=== PATIENT | female | born 1970 | race African-American/Black ===

== ENCOUNTER 2018-04-19 10:10 | Emergency (ER) | payer OTHER ==
[2018-04-19 10:20] VITALS: BP 142/99; PULSE 66; TEMP 98.1; BMI 34.4
--- NOTE | 2018-04-19 10:42 | PDOC ---
History of Present Illness - General History Source: Patient Exam Limitations: No Limitations <MaribelBritanyarmando Liao - Last Filed: 04/19/18 14:55> - General History Source: Patient Exam Limitations: No Limitations - History of Present Illness Initial Comments: 04/19/18 10:54 Patient is a 47-year-old female with past medical history of hypertension on atenolol and hydrochlorothiazide, presents to the emergency department today for 1 day of right lower extremity cramping, intermittent chest pain, and epigastric tenderness for one day. Patient states that the calf is tender hurts to walk. Denies trauma or falling. Denies fevers, recent illness, shortness of breath, difficulty breathing, palpitations, nausea, vomiting, diarrhea, frequency, urgency and hematuria. <Mirian Jo - Last Filed: 04/19/18 18:06> - General Chief Complaint: Pain, Acute Stated Complaint: RT LEG PAIN/epgasitriac pain/chest pain Time Seen by Provider: 04/19/18 10:41 Past History <Britany López - Last Filed: 04/19/18 14:55> - Travel Traveled outside of the country in the last 30 days: No Close contact w/someone who was outside of country & ill: No - Past Medical History COPD: No CHF: No HTN: Yes - Surgical History Appendectomy: No Gastric Stapling: No - Immunization History Immunization Up to Date: No - Suicide/Smoking/Psychosocial Hx Smoking History: Never smoked Have you smoked in the past 12 months: No Information on smoking cessation initiated: No Hx Alcohol Use: No Drug/Substance Use Hx: No <Mirian Jo - Last Filed: 04/19/18 18:06> - Past Medical History Allergies/Adverse Reactions: Allergies Allergy/AdvReac Type Severity Reaction Status Date / Time No Known Allergies Allergy Verified 04/19/18 11:41 Home Medications: Ambulatory Orders Atenolol [Tenormin -] 25 mg PO DAILY 04/19/18 Hydrochlorothiazide [Hctz -] 50 mg PO DAILY 04/19/18 Review of Systems - Review of Systems Able to Perform ROS?: Yes Comments:: 04/19/18 11:09 CONSTITUTIONAL: Absent: fever, chills, diaphoresis, generalized weakness, malaise, loss of appetite HEENT: Absent: rhinorrhea, nasal congestion, throat pain, throat swelling, difficulty swallowing, mouth swelling, ear pain, eye pain, visual Changes CARDIOVASCULAR: Present: chest pain, and calf pain Absent: loss of consciousness, palpitations , irregular heart rate, peripheral edema RESPIRATORY: Absent: cough, shortness of breath, dyspnea with exertion, orthopnea, wheezing, stridor, hemoptysis GASTROINTESTINAL: Present: epigastric tenderness Absent: abdominal pain, abdominal distension, nausea, vomiting, diarrhea, constipation, melena, hematochezia GENITOURINARY: Absent: dysuria, frequency, urgency, hesitancy, hematuria, flank pain, genital pain MUSCULOSKELETAL: Absent: myalgia, arthralgia, joint swelling SKIN: Absent: rash, itching, pallor HEMATOLOGIC/IMMUNOLOGIC: Absent: easy bleeding, easy bruising, lymphadenopathy, frequent infections ENDOCRINE: Absent: unexplained weight gain, unexplained weight loss, heat intolerance, cold intolerance NEUROLOGIC: Absent: headache, focal weakness or paresthesias, dizziness, unsteady gait, seizure, mental status changes, bladder or bowel incontinence PSYCHIATRIC: Absent: anxiety, depression, suicidal or homicidal ideation, hallucinations. Is the patient limited Micronesian proficient: No <Mirian Jo - Last Filed: 04/19/18 18:06> *Physical Exam - Vital Signs Last Vital Signs Temp Pulse Resp BP Pulse Ox 98.1 F 66 16 142/99 99 04/19/18 10:15 04/19/18 10:15 04/19/18 10:15 04/19/18 10:15 04/19/18 10:15 <Britany López - Last Filed: 04/19/18 14:55> - Vital Signs Last Vital Signs Temp Pulse Resp BP Pulse Ox 98.1 F 66 16 142/99 99 04/19/18 10:15 04/19/18 10:15 04/19/18 10:15 04/19/18 10:15 04/19/18 10:15 - Physical Exam Comments: 04/19/18 11:09 GENERAL: Well developed, well nourished. Awake and alert. No acute distress. HEENT: Normocephalic, atraumatic. PERRLA, EOMI. No conjunctival pallor. Sclera are non- icteric. Moist mucous membranes. Oropharynx is clear. NECK: Supple. Full ROM. No JVD. Carotid pulses 2+ and symmetric, without bruits. No thyromegaly. No lymphadenopathy. CARDIOVASCULAR: Regular rate and rhythm. No murmurs, rubs, or gallops. Distal pulses are 2+ and symmetric. PULMONARY: No evidence of respiratory distress. Lungs clear to auscultation bilaterally. No wheezing, rales or rhonchi. ABDOMINAL: Soft. Non-tender. Non-distended. No rebound or guarding. No organomegaly. Normoactive bowel sounds. MUSCULOSKELETAL Normal range of motion at all joints. No bony deformities or tenderness. No CVA tenderness. EXTREMITIES: TTP of R lower extremity around the calf. No edema appreciated. No cyanosis. No clubbing. SKIN: Warm and dry. Normal capillary refill. No rashes. No jaundice. NEUROLOGICAL: Alert, awake, appropriate. Cranial nerves 2-12 intact. No deficits to light touch and temperature in face, upper extremities and lower extremities. No motor deficits in the in face, upper extremities and lower extremities. Normoreflexic in the upper and lower extremities. Normal speech. Toes are down- going bilaterally. Gait is normal without ataxia. PSYCHIATRIC: Cooperative. Good eye contact. Appropriate mood and affect. <Mirian Jo - Last Filed: 04/19/18 18:06> ED Treatment Course - LABORATORY CBC & Chemistry Diagram: 04/19/18 11:27 04/19/18 11:27 - ADDITIONAL ORDERS Additional order review: Laboratory Results 04/19/18 04/19/18 04/19/18 11:40 11:40 11:27 PT with INR INR Sodium 141 Potassium 3.3 L Chloride 99 Carbon Dioxide 34 H Anion Gap 7 L BUN 22 H Creatinine 1.0 Creat Clearance w eGFR 58.93 Random Glucose 161 H Calcium 9.3 Total Bilirubin 0.5 AST 17 ALT 23 Alkaline Phosphatase 94 Creatine Kinase 221 H Creatine Kinase Index 0.5 CK-MB (CK-2) 1.3 Troponin I < 0.02 Total Protein 7.7 Albumin 3.8 Lipase 140 Urine Color Ltyellow Urine Appearance Clear Urine pH 7.0 Ur Specific [place] 1.017 Urine Protein Negative Urine Glucose (UA) Negative Urine Ketones Negative Urine Blood Negative Urine Nitrite Negative Urine Bilirubin Negative Urine Urobilinogen Negative Ur Leukocyte Esterase Negative Urine HCG, Qual Negative 04/19/18 11:27 PT with INR 14.00 H INR 1.18 H Sodium Potassium Chloride Carbon Dioxide Anion Gap BUN Creatinine Creat Clearance w eGFR Random Glucose Calcium Total Bilirubin AST ALT Alkaline Phosphatase Creatine Kinase Creatine Kinase Index CK-MB (CK-2) Troponin I Total Protein Albumin Lipase Urine Color Urine Appearance Urine pH Ur Specific [place] Urine Protein Urine Glucose (UA) Urine Ketones Urine Blood Urine Nitrite Urine Bilirubin Urine Urobilinogen Ur Leukocyte Esterase Urine HCG, Qual 04/19/18 11:27 RBC 4.95 MCV 86.7 MCHC 33.3 RDW 12.5 MPV 7.3 L Neutrophils % 50.0 Lymphocytes % 40.0 Monocytes % 6.5 Eosinophils % 2.6 Basophils % 0.9 <Britany López - Last Filed: 04/19/18 14:55> - LABORATORY CBC & Chemistry Diagram: 04/19/18 11:27 04/19/18 11:27 <Mirian Jo - Last Filed: 04/19/18 18:06> Medical Decision Making - Medical Decision Making 04/19/18 13:47 The patient was seen and evaluated in conjunction with midlevel provider under my direct supervision, ancillary studies were reviewed. I agree with the plan as outlined by JANA Jo. 47 YOF with cp and RLE cramping vitals wnl, reassuring. duplex neg for DVT labs and lytes normal. potassium mildly low, repleted neg preg test. UA unremarkable for infection or abnormalities. EKG nonischemic, sinus rhythm, wnl. discharge in stable condition 04/19/18 13:48 04/19/18 14:55 <Britany López - Last Filed: 04/19/18 14:55> - Medical Decision Making 04/19/18 14:59 Patient is a 47-year-old female past medical history of hypertension, who presents to emergency department today for 1 day of intermittent chest pain, epigastric tenderness and right lower extremity cramping. DDX includes but is not limited to DVT, electrolyte abnormality. ACS unlikely as pt has symptoms for over 24 hours. -VSS, pt well appearing -(+) TTP of the R calf, (-) keerthi's exam -US doppler (-) for DVT -EKG NSR, rate 63 BPM, qtc 448/458. No acute ST-T wave changes -Labs show hypokalemia at 3.3; d/t hydroclorthiazide? -No leukocytosis, other electrolytes WNL. Troponin (-) -repleated K+ -cramping most likely d/t hypokalemia -DC home -I discussed the physical exam findings, ancillary test results and final diagnoses with the patient. I answered all of the patient's questions. The patient was satisfied with the care received and felt comfortable with the discharge plan and treatment plan. The Patient agrees to follow up with the primary care physician/specialist within 24-72 hours. Return precautions were given. <Mirian Jo - Last Filed: 04/19/18 18:06> *DC/Admit/Observation/Transfer <Britany López - Last Filed: 04/19/18 14:55> - Discharge Dispostion Decision to Admit order: No <Mirian Jo - Last Filed: 04/19/18 18:06> Diagnosis at time of Disposition: Hypokalemia - Discharge Dispostion Disposition: HOME Condition at time of disposition: Stable - Referrals Referrals: Satya Meza MD [Staff Physician] - Marie Prieto MD [Staff Physician] - Lela England [Staff Physician] - - Patient Instructions Printed Discharge Instructions: DI for Hypokalemia Additional Instructions: You were evaluated today for your leg cramping and chest pain. Your scan for DVTs were negative. Your potassium was low. We gave you potassium in the emergency department. Please eat bananas and leafy green vegetables at home to help boost her potassium further. Please follow up with a primary care doctor. Multiple referrals for been provided for you. Return to the emergency department if you have difficulty breathing, chest pain , worsening of your symptoms or any new symptoms. - Post Discharge Activity Forms/Work/School Notes: Back to Work
[2018-04-19 12:03] LABS: BASO % 0.9 % (0-2.0); EOS % 2.6 % (0-4.5); HEMATOCRIT 42.9 % (32.4-45.2); HEMOGLOBIN 14.3 GM/dL (10.7-15.3); MCH 28.8 pg (25.7-33.7); MCHC 33.3 g/dl (32.0-36.0); MEAN CELL VOLUME 86.7 fl (80-96); MEAN PLT VOLUME 7.3 fl (7.5-11.1); MONO % 6.5 % (3.8-10.2); PLATELET COUNT 354 K/MM3 (134-434); RBC 4.95 M/mm3 (3.60-5.2); RDW 12.5 % (11.6-15.6); WHITE BLOOD COUNT 5.5 K/mm3 (4.0-10.0)
[2018-04-19 12:15] LABS: HCG,QUALITATIVE URINE Negative
[2018-04-19 12:22] LABS: INR 1.18 (0.83-1.09)
[2018-04-19 12:24] LABS: URINE APPEARANCE CLEAR; URINE BILIRUBIN NEGATIVE (<2.0 mg/dL); URINE COLOR LTYELLOW; URINE GLUCOSE (UA) NEGATIVE (NEGATIVE); URINE KETONE NEGATIVE (NEGATIVE); URINE LEUK ESTERASE NEGATIVE (NEGATIVE); URINE NITRITE NEGATIVE (NEGATIVE); URINE PROTEIN NEGATIVE (NEGATIVE); URINE UROBILINOGEN NEGATIVE mg/dL (0.2-1.0)
[2018-04-19 12:32] LABS: ALBUMIN 3.8 g/dl (3.4-5.0); ALK PHOS 94 U/L (45-117); ANION GAP 7 MMOL/L (8-16); BILIRUBIN,TOTAL 0.5 mg/dL (0.2-1); BLOOD UREA NITROGEN 22 mg/dL (7-18); CALCIUM 9.3 mg/dL (8.5-10.1); CHLORIDE 99 mmol/L (98-107); CO2 34 mmol/L (21-32); GLUCOSE,RANDOM 161 mg/dL (74-106); POTASSIUM 3.3 mmol/L (3.5-5.1); SGOT/AST 17 U/L (15-37); SGPT/ALT 23 U/L (13-61); SODIUM 141 mmol/L (136-145); TOT PROT 7.7 g/dl (6.4-8.2)
[2018-04-19 12:32] LABS: LIPASE 140 U/L (73-393)
[2018-04-19] MEDS ORDERED: POTASSIUM CHLORIDE TABS 20 MEQ TABLET.ER (FP) PO ONE ×2 (13:32→14:00)
--- NOTE | 2018-04-20 12:16 | EKG ---
Test Reason : Blood Pressure : / mmHG Vent. Rate : 063 BPM Atrial Rate : 063 BPM P-R Int : 214 ms QRS Dur : 108 ms QT Int : 448 ms P-R-T Axes : 061 -45 004 degrees QTc Int : 458 ms SINUS RHYTHM WITH 1ST DEGREE A-V BLOCK POSSIBLE LEFT ATRIAL ENLARGEMENT LEFT AXIS DEVIATION INCOMPLETE RIGHT BUNDLE BRANCH BLOCK ABNORMAL ECG NO PREVIOUS ECGS AVAILABLE Confirmed by MEERA MEJIA MD ([id number]) on 04/20/2018 12:16:35 PM Referred By: Confirmed By:MEERA MEJIA MD
== END 2018-04-19 15:53 | disposition home or self-care (01) ==
LOC: JER 10:10
DX: E87.6 Hypokalemia (principal); I10 Essential (primary) hypertension
CPT/HCPCS: 36415; 71046-TC-FY; 80053; 81003; 82550; 82553; 83690; 84484; 84703; 85025; 85610; 87086; 93005; 93010; 93971-TC; 99283-25

== ENCOUNTER 2019-06-03 16:17 | Emergency (ER) | payer OTHER ==
[2019-06-03 16:23] VITALS: BMI 33.0
--- NOTE | 2019-06-03 17:28 | PDOC ---
Attending Attestation - Resident Resident Name: Gissell Sheriff - HPI HPI: 06/03/19 18:43 Pt presents to the ED complaining of a two day history of wheezing with lying flat and substernal chest discomfort. Denies shortness of breath, orthopnea, or ARREDONDO. Patient has two year history of L sided pleuritic chest pain, which CT scans and stress test were negative. PAtient is recently post R nephrectomy for renal cell carcinoma. - Physicial Exam PE: 06/03/19 18:55 Agree with resident exam. Patient is well appearing and in no acute distress. Lungs are clear. Heart regular rate and rhythm without murmurs. - Medical Decision Making 06/03/19 18:56 PT presents to the ED complaining of worsening of his chronic chest pain. Well appearing in the ED. EKG shows no evidence of ischemia. Will check labs to rule out ACS, likely discharge home if labs are within normal limits.
--- NOTE | 2019-06-03 17:50 | PDOC ---
History of Present Illness - General Chief Complaint: Pain Stated Complaint: CHEST DISCOMFORT/HURTS UPON INHALATION Time Seen by Provider: 06/03/19 16:53 History Source: Patient Exam Limitations: No Limitations - History of Present Illness Initial Comments: Pt is a 48 yo F, with PMH of HTN, hypokalemia, partial thyroidectomy (2/2 hyperthyroidism), RCC (s/p R nephrectomy and adrenalectomy), who is presenting with chest pain. Pt states she has had sharp chest pain which is worse with deep breaths that has been ongoing x1 year. She states she had a cardiac stress test within the last year, which was normal, but not an echo. Pt states the pain has been radiating up towards the middle of her chest, and has become more "pressure like" over the past 2 days. Pt states she has also had to sleep more upright, and has been coughing whitish sputum over the past 2 days. Pt denies any fevers/chills, headache, vision changes, syncope, palpitations, SOB, nausea/ vomiting, abdominal pain, urinary symptoms, diarrhea/constipation, or leg swelling from baseline. Pt had R nephrectomy and R adrenalectomy done 09/2018 -- last Cr was 1.2, done 3 weeks ago Allergies: NKDA PCP: Dr. Padmini Davalos ([facility]) Renal: [facility] Cards: Johnny ([place]) LMP: 04/28, starting to become more infrequent. Social: Pt denies any cigarette, alcohol, or drug use. Pt denies any recent travel or sick contacts. Surgical: see above Family: no relevant history. 06/03/19 17:58 06/03/19 18:10 Past History - Travel Traveled outside of the country in the last 30 days: No Close contact w/someone who was outside of country & ill: No - Past Medical History Allergies/Adverse Reactions: Allergies Allergy/AdvReac Type Severity Reaction Status Date / Time contrast AdvReac Uncoded 06/03/19 17:04 Home Medications: Ambulatory Orders Atenolol [Tenormin -] 50 mg PO DAILY 04/19/18 Atorvastatin Ca [Lipitor] 10 mg PO HS 06/03/19 Cancer: Yes (stage 3 09/2018) COPD: No CHF: No HTN: Yes - Surgical History Appendectomy: No Gastric Stapling: No - Immunization History Immunization Up to Date: No - Psycho Social/Smoking Cessation Hx Smoking History: Never smoked Have you smoked in the past 12 months: No Hx Alcohol Use: No Drug/Substance Use Hx: No Cardiac Specific PMH - Complaint Specific PMHX Abdominal Aortic Aneurysm: No Angina: No Cardiac Arrhythmia: No Cardiac Stent: No GERD: No Myocardial Infarction: No Pacemaker: No Pulmonary Embolus: No Valvular Heart Disease: No Peripheral Vascular Disease: No Review of Systems - Review of Systems Able to Perform ROS?: Yes Is the patient limited Portuguese proficient: No Constitutional: Yes: Weight Stable. No: Chills, Diaphoresis, Fever, Loss of Appetite, Malaise, Weakness HEENTM: No: Recent change in vision, Nose Congestion, Throat Pain, Throat Swelling, Difficulty Swallowing Respiratory: Yes: Cough, Orthopnea, Wheezing, Productive cough. No: Shortness of Breath, SOB with Exertion, SOB at Rest, Hemoptysis Cardiac (ROS): Yes: Chest Pain, Chest Tightness. No: Edema, Irregular Heart Rate, Lightheadedness, Palpitations, Syncope ABD/GI: No: Constipated, Diarrhea, Nausea, Poor Appetite, Poor Fluid Intake, Vomiting, Abdominal cramping : No: Burning, Dysuria, Frequency, Flank Pain, Hematuria, Pain, Urgency Musculoskeletal: No: Back Pain, Joint Pain, Muscle Pain, Muscle Weakness Integumentary: No: Rash Neurological: No: Headache, Numbness, Weakness, Unsteady Gait, Dizziness Psychiatric: No: Sleep Pattern Change, Change in Appetite Endocrine: No: Increased Urine, Change in Weight Hematologic/Lymphatic: No: Anemia, Blood Clots, Easy Bleeding, Easy Bruising All Other Systems: Reviewed and Negative *Physical Exam - Vital Signs Last Vital Signs Temp Pulse Resp BP Pulse Ox 98.4 F 71 18 157/96 98 06/03/19 16:19 06/03/19 16:19 06/03/19 16:19 06/03/19 16:19 06/03/19 16:19 - Physical Exam Vitals stable, pt afebrile. Pt in NAD, obese body habitus. Pt alert and oriented x3. etl architect generally intact, muscular strength and sensation intact. No midline spinal tenderness, step-offs, or crepitus. Head normocephalic, atraumatic. Eyes PERRLA, EOMI. Oropharynx without erythema or exudates, no LAD b/l. No nasal congestion. Hearing intact. Clear heart sounds, S1/S2, no JVD, b/l pedal edema, or heart murmur. Scattered expiratory wheezing, with no diminished breath sounds or intercostal muscle use. No increased WOB with exam. No abdominal or CVA tenderness to palpation, no rebound, no guarding. Abdomen soft, non-distended, and with normoactive bowel sounds. Skin without jaundice or rash. 06/03/19 18:12 06/03/19 18:29 Heart Score/ECG Review - History History: Slightly suspicious - Electrocardiogram EKG: Non specific repolarization disturbance - Age Age: 45-65 - Risk Factors Risk Factors Heart Score: Yes Hx Hypertension, Yes Hx Obesity Based on the list above the patient has:: 1-2 risk factors - Troponin Troponin: </= normal limit - Score Heart Score - Total: 3 ED Treatment Course - LABORATORY CBC & Chemistry Diagram: 06/03/19 18:10 06/03/19 18:10 - ADDITIONAL ORDERS Additional order review: Laboratory Results 06/03/19 18:10 Urine Color Yellow Urine Appearance Clear Urine pH 7.0 Ur Specific [place] 1.019 Urine Protein Negative Urine Glucose (UA) Negative Urine Ketones Negative Urine Blood Negative Urine Nitrite Negative Urine Bilirubin Negative Urine Urobilinogen 1.0 Ur Leukocyte Esterase 1+ H Urine WBC (Auto) 5 Urine RBC (Auto) 2 Urine Casts (Auto) 0 U Epithel Cells (Auto) 1.9 Urine Bacteria (Auto) 74.0 - RADIOLOGY Radiology Studies Ordered: Category Date Time Status CHEST PA & LAT [RAD] Stat Radiology 06/03/19 17:56 Ordered Medical Decision Making - Medical Decision Making Pt was seen at bedside, also will be seen by attending Dr. Erazo. Pt presenting with chest pressure, and new symptoms of productive cough, orthopnea , and wheezing. Will evaluate for ACS vs pleural effusion vs CHF vs electrolyte abnormalities vs infection (pneumonia) Will continue to reassess pt and monitor for symptomatic improvement. ECG: NSR, incomplete RBBB (HR 68, VA 202, QRS 92, QTc 448). TWI V2 and III, with no significant ST segment changes. No significant changes from prior ECG ( 04/19/2019). 06/03/19 18:48 Labwork sent, work-up pending. Pt signed out to night team. 06/03/19 18:54 Discharge - Discharge Information Problems reviewed: Yes Clinical Impression/Diagnosis: Chest pressure Condition: Stable - Follow up/Referral - Patient Discharge Instructions - Post Discharge Activity
[2019-06-03 18:24] LABS: BASO % 1.4 % (0-2.0); EOS % 3.9 % (0-4.5); HEMOGLOBIN 14.5 GM/dL (10.7-15.3); MCH 28.9 pg (25.7-33.7); MEAN CELL VOLUME 87.6 fl (80-96); MEAN PLT VOLUME 7.5 fl (7.5-11.1); MONO % 6.5 % (3.8-10.2); NEUT % 56.2 % (42.8-82.8); PLATELET COUNT 337 K/MM3 (134-434); RBC 5.02 M/mm3 (3.60-5.2); RDW 13.3 % (11.6-15.6); WHITE BLOOD COUNT 8.7 K/mm3 (4.0-10.0)
[2019-06-03 18:28] LABS: EPI CELLS 1.9 /HPF (0-5/HPF); HYALINE CASTS 0 /lpf (0-8); URINE APPEARANCE CLEAR; URINE BILIRUBIN NEGATIVE (NEGATIVE); URINE COLOR YELLOW; URINE GLUCOSE (UA) NEGATIVE (NEGATIVE); URINE KETONE NEGATIVE (NEGATIVE); URINE LEUK ESTERASE 1+ (NEGATIVE); URINE NITRITE NEGATIVE (NEGATIVE); URINE PROTEIN NEGATIVE (NEGATIVE); URINE RBC 2 /hpf (0-4); URINE WBC 5 /hpf (0-5)
[2019-06-03 18:35] LABS: INR 0.98 (0.83-1.09); PROTHROMBIN TIME (PATIENT) 11.6 SEC (9.7-13.0)
[2019-06-03 18:56] LABS: ALBUMIN 3.8 g/dl (3.4-5.0); ALK PHOS 110 U/L (45-117); ANION GAP 8 MMOL/L (8-16); BILIRUBIN,TOTAL 0.4 mg/dL (0.2-1); BLOOD UREA NITROGEN 18.6 mg/dL (7-18); CALCIUM 8.8 mg/dL (8.5-10.1); CHLORIDE 102 mmol/L (98-107); CO2 28 mmol/L (21-32); CREATININE 1.1 mg/dL (0.55-1.3); GLUCOSE,RANDOM 94 mg/dL (74-106); N-TERMINAL BNP 15.2 pg/ml (5-125); POTASSIUM 4.1 mmol/L (3.5-5.1); SGOT/AST 9 U/L (15-37); SGPT/ALT 22 U/L (13-61); SODIUM 138 mmol/L (136-145); TOT PROT 7.4 g/dl (6.4-8.2)
--- NOTE | 2019-06-03 19:05 | PDOC ---
*Physical Exam - Vital Signs Last Vital Signs Temp Pulse Resp BP Pulse Ox 98.4 F 71 18 157/96 98 06/03/19 16:19 06/03/19 16:19 06/03/19 16:19 06/03/19 16:19 06/03/19 16:19 ED Treatment Course - LABORATORY CBC & Chemistry Diagram: 06/03/19 18:10 06/03/19 18:10 - ADDITIONAL ORDERS Additional order review: Laboratory Results 06/03/19 06/03/19 06/03/19 18:10 18:10 18:10 PT with INR 11.60 INR 0.98 Sodium Potassium Chloride Carbon Dioxide Anion Gap BUN Creatinine Est GFR (CKD-EPI)AfAm Est GFR (CKD-EPI)NonAf Random Glucose Calcium Magnesium Total Bilirubin AST ALT Alkaline Phosphatase Troponin I B-Natriuretic Peptide Total Protein Albumin TSH Serum , Qual Negative Urine Color Yellow Urine Appearance Clear Urine pH 7.0 Ur Specific [place] 1.019 Urine Protein Negative Urine Glucose (UA) Negative Urine Ketones Negative Urine Blood Negative Urine Nitrite Negative Urine Bilirubin Negative Urine Urobilinogen 1.0 Ur Leukocyte Esterase 1+ H Urine WBC (Auto) 5 Urine RBC (Auto) 2 Urine Casts (Auto) 0 U Epithel Cells (Auto) 1.9 Urine Bacteria (Auto) 74.0 06/03/19 06/03/19 18:10 18:10 PT with INR INR Sodium 138 Potassium 4.1 Chloride 102 Carbon Dioxide 28 Anion Gap 8 BUN 18.6 H Creatinine 1.1 Est GFR (CKD-EPI)AfAm 67.79 Est GFR (CKD-EPI)NonAf 58.49 Random Glucose 94 Calcium 8.8 Magnesium 1.9 Total Bilirubin 0.4 AST 9 L ALT 22 Alkaline Phosphatase 110 Troponin I < 0.02 B-Natriuretic Peptide 15.2 Total Protein 7.4 Albumin 3.8 TSH 2.39 Serum , Qual Urine Color Urine Appearance Urine pH Ur Specific [place] Urine Protein Urine Glucose (UA) Urine Ketones Urine Blood Urine Nitrite Urine Bilirubin Urine Urobilinogen Ur Leukocyte Esterase Urine WBC (Auto) Urine RBC (Auto) Urine Casts (Auto) U Epithel Cells (Auto) Urine Bacteria (Auto) 06/03/19 18:10 RBC 5.02 MCV 87.6 MCHC 33.0 RDW 13.3 MPV 7.5 Neutrophils % 56.2 Lymphocytes % 32.0 Monocytes % 6.5 Eosinophils % 3.9 Basophils % 1.4 - RADIOLOGY Radiology Studies Ordered: Category Date Time Status CHEST PA & LAT [RAD] Stat Radiology 06/03/19 17:56 Ordered Medical Decision Making - Medical Decision Making CBC and CMP WNL Trop <.02 BNP WNL Pt safe for d/c to home. Potentially pleuritic pain due to recent congestion. Suggested nasal saline flushes and tylenol PRN for pain. Avoid motrin due to nephrotoxicity Pt can d/c with cardiology and PCP. Strict return precautions provided with pt understanding. 06/03/19 19:02 Discharge - Discharge Information Problems reviewed: Yes Clinical Impression/Diagnosis: Chest pressure Condition: Stable - Admission No - Follow up/Referral - Patient Discharge Instructions Patient Printed Discharge Instructions: DI for Atypical Chest Pain Additional Instructions: You were seen in the ER today for chest pressure. The results of your labs and imaging today were normal. Please follow-up with your primary care doctor (Dr. Davalos) and Cardiology (Dr. Turner) within 1-2 days to discuss your visit and make sure your symptoms have improved. Please return to the ER if you have any worsening pain, development of fevers or chills, loss of consciousness, inability to tolerate food or fluids, or any other concerns. You can take tylenol every 4-6 hours as needed for pain. - Post Discharge Activity
[2019-06-03 19:16] VITALS: TEMP 98
[2019-06-03 19:27] VITALS: BP 126/85; PULSE 68
--- NOTE | 2019-06-04 13:40 | EKG ---
Test Reason : Blood Pressure : / mmHG Vent. Rate : 068 BPM Atrial Rate : 068 BPM P-R Int : 202 ms QRS Dur : 092 ms QT Int : 422 ms P-R-T Axes : 061 -27 025 degrees QTc Int : 448 ms NORMAL SINUS RHYTHM POSSIBLE LEFT ATRIAL ENLARGEMENT INCOMPLETE RIGHT BUNDLE BRANCH BLOCK BORDERLINE ECG WHEN COMPARED WITH ECG OF 19-APR-2018 14:33, T WAVE INVERSION LESS EVIDENT IN ANTERIOR LEADS Confirmed by FELISA MONROY MD ([id number]) on 06/04/2019 1:39:39 PM Referred By: Confirmed By:FELISA MONROY MD
== END 2019-06-03 19:21 | disposition home or self-care (01) ==
LOC: JER 16:17 → JERFT 16:17 → JER 19:18
DX: R07.89 Other chest pain (principal); I10 Essential (primary) hypertension; E66.9 Obesity, unspecified; Z85.9 Personal history of malignant neoplasm, unspecified; Z91.041 Radiographic dye allergy status
CPT/HCPCS: 36415; 71046-TC-FY; 80053; 81003; 83735; 83880; 84443; 84484; 84703; 85025; 85610; 93005; 93010; 99283-25

== ENCOUNTER 2020-05-13 13:23 | Emergency (ER) | payer OTHER ==
[2020-05-13] MEDS ORDERED: KETOROLAC TROMETHAMINE 30 MG/1 ML VIAL IM ONE (13:36)
[2020-05-13] MEDS ORDERED: METHOCARBAMOL 500 MG TABLET PO ONE (13:36)
[2020-05-13 13:39] VITALS: BP 152/93; PULSE 88; TEMP 98.8; BMI 33.5
[2020-05-13] MEDS ORDERED: METHOCARBAMOL 500 MG TABLET ONE (14:16)
[2020-05-13] MEDS ORDERED: KETOROLAC TROMETHAMINE 30 MG/1 ML VIAL ONE (14:17)
== END 2020-05-13 14:50 | disposition home or self-care (01) ==
LOC: JERFT 13:23 → JER 13:23 → JERFT 14:50
PROC: 3E0233Z Introduction of Anti-inflammatory into Muscle, Percutaneous Approach (ICD-10-PCS; principal; 2020-05-13)
DX: H92.01 Otalgia, right ear (principal)
CPT/HCPCS: 70360-TC-FY; 99284-25

== ENCOUNTER 2021-01-10 12:56 | Emergency (ER) | payer OTHER ==
[2021-01-10 13:27] VITALS: BMI 34.4
[2021-01-10] MEDS ORDERED: ONDANSETRON 4 MG/2 ML VIAL IVPUSH ONE (14:26)
[2021-01-10] MEDS ORDERED: SODIUM CHLORIDE 0.9% 1000 ML INFUS.BAG IV ONE (14:27)
[2021-01-10] MEDS ORDERED: ONDANSETRON 4 MG/2 ML VIAL ONE (14:39)
[2021-01-10 15:00] LABS: BASO % 1.3 % (0-2.0); EOS % 2.2 % (0-4.5); LYMPH % 44.5 % (8-40); MCH 28.2 pg (25.7-33.7); MCHC 32.6 g/dl (32.0-36.0); MEAN CELL VOLUME 86.3 fl (80-96); MEAN PLT VOLUME 7.2 fl (7.5-11.1); PLATELET COUNT 385 10^3/uL (134-434); RBC 4.98 M/mm3 (3.60-5.2); RDW 13.4 % (11.6-15.6); WHITE BLOOD COUNT 7.7 K/mm3 (4.0-10.0)
[2021-01-10 15:03] LABS: EPI CELLS 17 /uL (0-25.1); HYALINE CASTS 1 /uL (0-3.1); URINE APPEARANCE CLEAR; URINE BACTERIA 376 /uL (0-1359); URINE BILIRUBIN NEGATIVE (NEGATIVE); URINE COLOR YELLOW; URINE GLUCOSE (UA) NEGATIVE (NEGATIVE); URINE KETONE NEGATIVE (NEGATIVE); URINE LEUK ESTERASE 1+ (NEGATIVE); URINE NITRITE NEGATIVE (NEGATIVE); URINE PROTEIN NEGATIVE (NEGATIVE); URINE RBC 27 /uL (0-23.9); URINE WBC 24 /uL (0-25.8)
[2021-01-10 15:20] LABS: ALBUMIN 4.1 g/dl (3.4-5.0); CALCIUM 9.2 mg/dL (8.5-10.1)
[2021-01-10 15:21] LABS: BLOOD UREA NITROGEN 24.3 mg/dL (7-18)
[2021-01-10 15:24] LABS: CREATININE 1.3 mg/dL (0.55-1.3)
[2021-01-10 15:25] LABS: BILIRUBIN,TOTAL 0.4 mg/dL (0.2-1); TOT PROT 8.1 g/dl (6.4-8.2)
[2021-01-10] MEDS ORDERED: CEFTRIAXONE 1,000 MG in DEXTROSE 5%-WATER - 50 ML IVPB ONE (16:29)
[2021-01-10] MEDS ORDERED: CEFTRIAXONE 1 GM/50 ML BAG ONE (16:42)
[2021-01-10 18:33] VITALS: BP 151/87; PULSE 64; TEMP 97.7
== END 2021-01-10 18:42 | disposition home or self-care (01) ==
LOC: JER 12:56
PROC: 3E03329 Introduction of Other Anti-infective into Peripheral Vein, Percutaneous Approach (ICD-10-PCS; principal; 2021-01-10)
PROC: 3E033GC Introduction of Other Therapeutic Substance into Peripheral Vein, Percutaneous Approach (ICD-10-PCS; 2021-01-10)
DX: N30.00 Acute cystitis without hematuria (principal); Z90.5 Acquired absence of kidney
CPT/HCPCS: 36415; 74176-TC; 80053; 81003; 83690; 85025; 93005; 93010; 99285-25

== ENCOUNTER 2021-08-14 10:50 | Emergency (ER) | payer OTHER ==
[2021-08-14 11:09] VITALS: TEMP 97.8; BMI 36.6
[2021-08-14] MEDS ORDERED: SODIUM CHLORIDE 0.9% 500 ML INFUS.BAG IV ONE (12:37)
[2021-08-14] MEDS ORDERED: METOCLOPRAMIDE HCL INJECTION 10 MG/2 ML VIAL IVPUSH ONE (12:37)
[2021-08-14] MEDS ORDERED: MECLIZINE HCL 25 MG TABLET (FP) PO ONE (12:37)
[2021-08-14] MEDS ORDERED: METOCLOPRAMIDE HCL INJECTION 10 MG/2 ML VIAL ONE (12:51)
[2021-08-14] MEDS ORDERED: MECLIZINE HCL 25 MG TABLET (FP) ONE (12:52)
[2021-08-14 13:28] LABS: BASO % 0.8 % (0-2.0); HEMATOCRIT 43.5 % (32.4-45.2); HEMOGLOBIN 14.2 GM/dL (10.7-15.3); LYMPH % 34.7 % (8-40); MCH 27.9 pg (25.7-33.7); MCHC 32.7 g/dl (32.0-36.0); MEAN CELL VOLUME 85.1 fl (80-96); MEAN PLT VOLUME 7.2 fl (7.5-11.1); MONO % 6.8 % (3.8-10.2); NEUT % 55.7 % (42.8-82.8); PLATELET COUNT 388 10^3/uL (134-434); RDW 13.4 % (11.6-15.6); WHITE BLOOD COUNT 6.7 K/mm3 (4.0-10.0)
[2021-08-14 13:53] LABS: CALCIUM 9.8 mg/dL (8.5-10.1)
[2021-08-14 13:54] LABS: ALBUMIN 4.1 g/dl (3.4-5.0); BLOOD UREA NITROGEN 17.6 mg/dL (7-18)
[2021-08-14 13:57] LABS: CREATININE 1.1 mg/dL (0.55-1.3)
[2021-08-14 13:58] LABS: BILIRUBIN,TOTAL 0.3 mg/dL (0.2-1)
[2021-08-14 15:58] VITALS: BP 148/94; PULSE 89
== END 2021-08-14 15:58 | disposition home or self-care (01) ==
LOC: JER 10:50
PROC: 3E033GC Introduction of Other Therapeutic Substance into Peripheral Vein, Percutaneous Approach (ICD-10-PCS; principal; 2021-08-14)
DX: R42 Dizziness and giddiness (principal)
CPT/HCPCS: 36415; 70450-TC; 80053; 84484; 85025; 93005; 93010; 99285-25

== ENCOUNTER 2022-06-04 11:32 | Observation (INO) | payer OTHER ==
[2022-06-04 11:58] VITALS: RESP 18; BMI 31.5
[2022-06-04] MEDS ORDERED: ATENOLOL 50 MG TABLET (FP) PO ONE (13:40)
[2022-06-04 14:00] LABS: HEMATOCRIT 45.2 % (32.4-45.2); HEMOGLOBIN 14.9 GM/dL (10.7-15.3); MCH 28.6 pg (25.7-33.7); MCHC 32.9 g/dl (32.0-36.0); MEAN CELL VOLUME 86.9 fl (80-96); MEAN PLT VOLUME 7.2 fl (7.5-11.1); PLATELET COUNT 367 10^3/uL (134-434); WHITE BLOOD COUNT 7.3 K/mm3 (4.0-10.0)
[2022-06-04 14:21] LABS: CALCIUM 9.6 mg/dL (8.5-10.1)
[2022-06-04 14:23] LABS: ALBUMIN 3.8 g/dl (3.4-5.0); BLOOD UREA NITROGEN 18.4 mg/dL (7-18)
[2022-06-04 14:26] LABS: TOT PROT 7.8 g/dl (6.4-8.2)
[2022-06-04 14:33] LABS: BILIRUBIN,TOTAL 0.3 mg/dL (0.2-1); CREATININE 1.1 mg/dL (0.55-1.3)
[2022-06-04] MEDS ORDERED: ATENOLOL 50 MG TABLET (FP) ONE (14:46)
[2022-06-04] MEDS ORDERED: ASPIRIN 81 MG CHEWABLE TABLETS PO ONE (15:03)
[2022-06-04] MEDS ORDERED: DOCUSATE SODIUM 100 MG CAPSULE (FP) PO PRN (19:33)
[2022-06-04 20:04] LABS: MAGNESIUM 2.1 mg/dL (1.8-2.4)
[2022-06-04 20:08] LABS: PHOSPHOROUS 3.4 mg/dL (2.5-4.9)
[2022-06-04 20:13] LABS: N-TERMINAL BNP 11.5 pg/ml (5-125)
[2022-06-04] MEDS ORDERED: MAG HYDROX/AL HYDROX/SIMETH 30 ML UNIT-DOSE CUP PO PRN (20:28)
[2022-06-04] MEDS ORDERED: FAMOTIDINE 20 MG/50 ML IVPB 20 MG/50 ML MG IVPB ONE (20:28)
[2022-06-04] MEDS ORDERED: FAMOTIDINE 20 MG TABLET ONE (20:43)
[2022-06-05] MEDS: LISINOPRIL 5 MG TABLET PO SCH ×2 (00:04→10:55)
[2022-06-05] MEDS: INSULIN SLIDING SCALE (NOVOLOG) 1 VIAL SQ SCH ×2 (00:05→10:55)
[2022-06-05 08:04] LABS: BASO % 0.8 % (0-2.0); EOS % 3.1 % (0-4.5); HEMATOCRIT 44.6 % (32.4-45.2); HEMOGLOBIN 14.4 GM/dL (10.7-15.3); LYMPH % 35.6 % (8-40); MCH 27.9 pg (25.7-33.7); MCHC 32.3 g/dl (32.0-36.0); MEAN CELL VOLUME 86.5 fl (80-96); MEAN PLT VOLUME 7.3 fl (7.5-11.1); MONO % 7.1 % (3.8-10.2); NEUT % 53.4 % (42.8-82.8); PLATELET COUNT 405 10^3/uL (134-434); RBC 5.16 M/mm3 (3.60-5.2); RDW 13.1 % (11.6-15.6); WHITE BLOOD COUNT 6.4 K/mm3 (4.0-10.0)
[2022-06-05 08:15] LABS: INR 1.13 (0.83-1.09)
[2022-06-05 08:45] LABS: CALCIUM 9.7 mg/dL (8.5-10.1)
[2022-06-05 08:49] LABS: BLOOD UREA NITROGEN 17.3 mg/dL (7-18)
[2022-06-05 08:50] LABS: CREATININE 1.2 mg/dL (0.55-1.3)
[2022-06-05 09:47] VITALS: BP 109/89; PULSE 68; TEMP 97.8
[2022-06-05] MEDS ORDERED: ATENOLOL 50 MG TABLET (FP) PO SCH (10:00)
[2022-06-05] MEDS ORDERED: ENOXAPARIN NA (PORCINE) 40 MG/0.4 ML DISP.SYRIN SQ SCH (10:00)
[2022-06-05] MEDS ORDERED: ATORVASTATIN CA 40 MG TABLET (FP) PO SCH (22:00)
== END 2022-06-05 22:59 | disposition left against medical advice (07) ==
LOC: JER 11:32 → JERBED 17:45
PROVIDERS: ADMIT Internal Medicine; ATTEND Internal Medicine
PROC: 3E033GC Introduction of Other Therapeutic Substance into Peripheral Vein, Percutaneous Approach (ICD-10-PCS; principal; 2022-06-04)
DX: R07.89 Other chest pain (principal); E05.00 Thyrotoxicosis with diffuse goiter without thyrotoxic crisis or storm; K21.9 Gastro-esophageal reflux disease without esophagitis; Z85.53 Personal history of malignant neoplasm of renal pelvis; E78.5 Hyperlipidemia, unspecified; E66.01 Morbid (severe) obesity due to excess calories; I10 Essential (primary) hypertension; R01.1 Cardiac murmur, unspecified; R73.03 Prediabetes; Z91.041 Radiographic dye allergy status; Z68.31 Body mass index [BMI] 31.0-31.9, adult; Z90.89 Acquired absence of other organs
CPT/HCPCS: 36415; 71046-TC-FY; 80048; 80053; 80061; 82962; 83036; 83735; 83880; 84100; 84443; 84484; 85025; 85027; 85610; 85730; 93005; 93010; 99285-25; C9803-CS; G0378; U0003; U0005

== ENCOUNTER 2024-12-29 19:42 | Emergency (ER) | payer OTHER ==
[2024-12-29 20:06] VITALS: BP 141/88; PULSE 84; RESP 18; TEMP 98.2; BMI 33.0
[2024-12-29] MEDS ORDERED: ACETAMINOPHEN 500 MG TABLET (FP) ONE (20:29)
[2024-12-29] MEDS ORDERED: ONDANSETRON *ODT* 4 MG TABLET ONE (20:30)
[2024-12-29] MEDS: ONDANSETRON *ODT* 4 MG TABLET SL ONE (20:32)
[2024-12-29] MEDS: ACETAMINOPHEN 500 MG TABLET (FP) PO ONE (20:32)
== END 2024-12-29 22:07 | disposition left against medical advice (07) ==
LOC: JERFT 19:42
DX: S09.90XA Unspecified injury of head, initial encounter (principal); R11.0 Nausea; V49.50XA Passenger injured in collision with unspecified motor vehicles in traffic accident, initial encounter
CPT/HCPCS: 70450-TC; 99284-25; Q0162